=== PATIENT | female | born 1945 | race Caucasian/White ===

== ENCOUNTER 2022-09-13 16:47 | Inpatient (IN) | payer MEDICARE, OTHER ==
[~2022-09-13] VITALS: Ht 167.6 cm; Wt 67.1 kg
--- NOTE | 2022-09-13 17:05 | NUR ---
Pt is medically cleared by Dr Belcher, placed a call to Francia RUBIO RN for Psych eval. Awaiting call back.
--- NOTE | 2022-09-13 17:14 | NUR ---
patient sent to er for medical clearance c/o left shoulder pain denies sob cp, no nausea vomiting.
[2022-09-13] MEDS ORDERED: BUPR8TAB4 SL (17:26)
--- NOTE | 2022-09-13 17:26 | NUR ---
Spoke to Pt's daughter Maribel, and requested her to bring pt's med list/bottles.
--- NOTE | 2022-09-13 19:33 | NUR ---
[facility] crisis team for psych evaluation
[2022-09-13] MEDS ORDERED: METO50TA16 PO (20:13)
[2022-09-13] MEDS ORDERED: AMLO-212 PO (20:16)
[2022-09-13] MEDS ORDERED: APIX5TAB4 PO (20:18)
[2022-09-13] MEDS ORDERED: ROSU5TAB PO (20:20)
[2022-09-13] MEDS ORDERED: SERT20OR6 PO (20:23)
[2022-09-13] MEDS ORDERED: NALO12.52 PO (20:25)
--- NOTE | 2022-09-13 20:53 | NUR ---
Report given to Rabia AVILES. Patient will be admitted to MHU room 138-A
--- NOTE | 2022-09-13 21:00 | NUR ---
Patient taken to MHU via gurney accompanied by TRACI Peralta with personal belongings. Patient in stable condition, no signs of distress. MHU RN aware of patients arrival.
[2022-09-13] MEDS: METOPROLOL TARTRATE 50 MG TABLET PO SCH (21:37)
[2022-09-13 22:00] VITALS: BP 161/83
[2022-09-13] MEDS ORDERED: MAGNESIUM HYDROXIDE 30 ML LIQUID UDC PO PRN (22:00)
[2022-09-13] MEDS ORDERED: MAG HYDROX/AL HYDROX/SIMETH 30 ML LIQUID UDC PO PRN (22:00)
[2022-09-13] MEDS: ACETAMINOPHEN 325 MG TABLET PO PRN (22:32)
[2022-09-13] MEDS: ZOLPIDEM 5 MG TABLET PO PRN (22:33)
--- NOTE | 2022-09-13 23:49 | NUR ---
GPS ADMISSION NOTES: Admitted a female 76 y/o patient to [facility] er nurse via silvio. Patient resides at home w/ daughter where she was reported to have overdosed on clonopin and alcohol. Patient was placed on 5150 for DTS, and will be followed by Dr. Weaver and Dr. Gomez. Upon face to face evaluation, she appears of stated age, well nourished in appearance. Patient is crying and moaning when being interviewed, she states she is in alot of pain especially in her back. Patient stated that she has significant chronic back pain, that is so excruciating she cannot bear the pain and live with that pain anymore. Patient admitted of taking clonazepam to overdose as she is "tired". Patient denies hurting herself at this time and contract safety with the financial writer. She also states to be feeling depressed and hopeless d/t chronic pain. Active listening and re-assurance provided to patients feelings. Her judgement and insight limited. Patient oriented to the unit and verbalized understanding. She was assisted to her room, skin assessment done, skin is to be intact. All belonging inventoried, contraband collected and placed in safe keeping. Close observation in placed, all safety measures implemented at all times.
[2022-09-14 06:47] LABS: HEMATOCRIT 42.6 % (31.2-41.9); MEAN CORPUSCULAR HEMOGLOBIN 30.1 uug (24.7-32.8); MEAN CORPUSCULAR VOLUME 89.4 fL (75.5-95.3); PLATELET COUNT (AUTO) 247 K/uL (179-408)
[2022-09-14 07:14] LABS: THYROID STIMULATING HORMONE 1.041 mIU/mL (0.358-3.740)
--- NOTE | 2022-09-14 07:15 | NUR ---
GPS Nursing note: Patient lying in bed, sleep, easily respond to voice, patient stated she had pain on her left arm due to arthritis, will follow with pain medication prn. fall and safety precaution implemented. will continue to monitor.
[2022-09-14 07:31] VITALS: BP 118/49
[2022-09-14 08:00] LABS: ALANINE AMINOTRANSFERASE 23 U/L (14-59); ALKALINE PHOSPHATASE 182 U/L (50-136); ASPARTATE AMINOTRANSFERASE 15 U/L (15-37); BILIRUBIN,TOTAL 1.5 mg/dL (0.2-1.0); CARBON DIOXIDE 29 mmol/L (21-32); CHLORIDE 97 mmol/L (98-107); CHOLESTEROL 162 mg/dL (<200); CREATININE 0.5 mg/dL (0.6-1.3); GLUCOSE 93 mg/dL (74-106); HDL CHOLESTEROL 89 mg/dL (40-60); MAGNESIUM 1.6 mg/dL (1.8-2.4); PHOSPHOROUS 4.4 mg/dL (2.5-4.9); POTASSIUM 3.8 mmol/L (3.5-5.1); TOTAL PROTEIN, SERUM 7.8 g/dL (6.4-8.2); TRIGLYCERIDES 53 MG/DL (30-150); UREA NITROGEN, BLOOD 8 mg/dL (7-18)
[2022-09-14] MEDS: APIXABAN 5 MG TABLET PO SCH ×2 (08:16→21:01)
[2022-09-14] MEDS: AMLODIPINE 5 MG TABLET PO SCH (08:25)
[2022-09-14] MEDS: ACETAMINOPHEN 325 MG TABLET PO PRN ×2 (08:27→20:57)
[2022-09-14] MEDS: METOPROLOL TARTRATE 50 MG TABLET PO SCH ×2 (09:15→21:15)
[2022-09-14] MEDS ORDERED: MAGNESIUM OXIDE 400 MG TABLET PO ONE (10:00)
[2022-09-14] MEDS: CHLORDIAZEPOXIDE HCL 25 MG CAPSULE PO SCH ×3 (10:54→16:53)
[2022-09-14] MEDS: MULTIVITAMINS,THERAPEUTIC TABLET PO SCH (10:54)
[2022-09-14] MEDS: DULOXETINE 30 MG CAPSULE.DR PO SCH (10:54)
[2022-09-14] MEDS: THIAMINE HCL 100 MG TABLET PO SCH (10:54)
[2022-09-14 10:58] VITALS: BP 132/50
--- NOTE | 2022-09-14 11:06 | NUR ---
GPS Nursing notes: patient awake, ambulated to the bathroom using FWW, with one assist, patient gait is unsteady, informed patient she needs to call nurse for help when ambulating to the bathroom. will continue to monitor. fall and safety precautions implemented, emotional support provided. Dr Gomez aware of patient home meds, dr Weaver spoke with doctor Gomez regarding medications. Will continue to monitor.
--- NOTE | 2022-09-14 11:44 | NUR ---
JUAN CARLOS Initial Discharge Note: Pt currently resides at home under the care of her daughter, Maribel [phone] located at [address] [place] [address]. Per Maribel, pt will return back home under Maribel's care upon discharge. JUAN CARLOS will continue to work with pt, Maribel and to ensure a safe and proper discharge plan.
--- NOTE | 2022-09-14 11:45 | NUR ---
JUAN CARLOS Discharge Update: JUAN CARLOS spoke with pt's daughter, Marible [phone] who stated that pt will return back home under her care upon discharge. JUAN CARLOS will continue to work with pt, Maribel and to ensure a safe and proper discharge plan.
--- NOTE | 2022-09-14 11:48 | NUR ---
Firearms Report: Wiener Packer completed and submitted a [employer] firearms report for 5150 a danger to self certifications. A copy of report has been placed in patient chart.
[2022-09-14] MEDS: BUPRENORPHINE SL SCH ×2 (12:21→16:53)
[2022-09-14] MEDS: NALOXONE SL SCH ×2 (12:21→16:53)
--- NOTE | 2022-09-14 13:08 | NUR ---
GPS Nursing notes: Patient cooperative, awake, denies SI/HI/VH/AH, seen by doctor Gomez, all medications reconciled, and continue home medications as ordered by Dr Gomez, pharmacy aware. Patient stated she feels better. "I live with my daughter but I take all medications by myself". fall and safety precautions implemented, emotional support provided. Will continue to monitor.
[2022-09-14] MEDS: GABAPENTIN 100 MG CAPSULE PO SCH ×2 (13:22→16:53)
[2022-09-14] MEDS ORDERED: BUPR1FIL3 SL (13:38)
[2022-09-14] MEDS: MOVANTIK 12.5 MG PO SCH (13:56)
[2022-09-14 15:51] VITALS: BP 96/42
[2022-09-14 16:53] VITALS: BP 123/69
[2022-09-14 20:06] VITALS: BP 106/51
[2022-09-14] MEDS: ATORVASTATIN 10 MG TABLET PO SCH (20:57)
[2022-09-14] MEDS: ZOLPIDEM 5 MG TABLET PO PRN (20:58)
[2022-09-15 08:07] VITALS: BP 113/82
[2022-09-15] MEDS: DULOXETINE 30 MG CAPSULE.DR PO SCH (08:27)
[2022-09-15] MEDS: THIAMINE HCL 100 MG TABLET PO SCH (08:27)
[2022-09-15] MEDS: GABAPENTIN 100 MG CAPSULE PO SCH ×3 (08:27→16:31)
[2022-09-15] MEDS: MULTIVITAMINS,THERAPEUTIC TABLET PO SCH (08:27)
[2022-09-15] MEDS: APIXABAN 5 MG TABLET PO SCH ×2 (08:27→21:15)
[2022-09-15] MEDS: CHLORDIAZEPOXIDE HCL 25 MG CAPSULE PO SCH ×3 (08:27→16:31)
[2022-09-15] MEDS: AMLODIPINE 5 MG TABLET PO SCH (08:28)
[2022-09-15] MEDS: MOVANTIK 12.5 MG PO SCH (08:29)
[2022-09-15] MEDS: METOPROLOL TARTRATE 50 MG TABLET PO SCH ×2 (08:33→21:12)
[2022-09-15] MEDS: NALOXONE SL SCH ×3 (08:48→16:32)
[2022-09-15] MEDS: BUPRENORPHINE SL SCH ×3 (08:48→16:32)
[2022-09-15] MEDS: ENSURE ENLIVE (VAN) 240 ML LIQUID PO SCH ×2 (13:24→16:32)
--- NOTE | 2022-09-15 15:50 | NUR ---
Patient is isolative, withdrawn, quiet, depressed, preoccupied, anxious at times. Patient states "I have a lot of pain. I have arthritis, and need my medication because it hurts too much". Patient is given Naloxone 8 mg/ 2 mg sublingual TID for pain. Patient is A/O X 3 to person, place, situation. Patient is cooperative with nursing care and compliant with medications. Patient is encourage to verbalize concerns. Fall and safety precautions implemented.
[2022-09-15 16:22] VITALS: BP 129/72
[2022-09-15 20:00] VITALS: BP 118/76
[2022-09-15] MEDS: ATORVASTATIN 10 MG TABLET PO SCH (21:12)
[2022-09-15] MEDS: ZOLPIDEM 5 MG TABLET PO PRN (21:22)
[2022-09-16] MEDS: ACETAMINOPHEN 325 MG TABLET PO PRN ×2 (00:26→21:19)
[2022-09-16] MEDS: LORAZEPAM 0.5 MG TABLET PO PRN (03:45)
--- NOTE | 2022-09-16 06:50 | NUR ---
Pt has c/o chronic pain. PRRN medications given Pt states she still has the pain. pt requested prn ativan at 0345. Tylenol aas given for pain. Pt was anxious and requested prn given at 0345. pt agreed to take a shower
[2022-09-16 07:40] VITALS: BP 117/58
[2022-09-16] MEDS: DULOXETINE 30 MG CAPSULE.DR PO SCH (08:28)
[2022-09-16] MEDS: APIXABAN 5 MG TABLET PO SCH ×2 (08:28→20:59)
[2022-09-16] MEDS: CYANOCOBALAMIN 1,000 MCG TABLET PO SCH (08:28)
[2022-09-16] MEDS: CHLORDIAZEPOXIDE HCL 25 MG CAPSULE PO SCH ×3 (08:29→17:06)
[2022-09-16] MEDS: GABAPENTIN 100 MG CAPSULE PO SCH ×3 (08:29→17:06)
[2022-09-16] MEDS: MULTIVITAMINS,THERAPEUTIC TABLET PO SCH (08:29)
[2022-09-16] MEDS: AMLODIPINE 5 MG TABLET PO SCH (08:29)
[2022-09-16] MEDS: THIAMINE HCL 100 MG TABLET PO SCH (08:29)
[2022-09-16] MEDS: MOVANTIK 12.5 MG PO SCH (08:31)
[2022-09-16] MEDS: ENSURE ENLIVE (VAN) 240 ML LIQUID PO SCH ×2 (08:32→17:07)
[2022-09-16] MEDS: NALOXONE SL SCH ×3 (08:33→17:05)
[2022-09-16] MEDS: BUPRENORPHINE SL SCH ×3 (08:33→17:05)
[2022-09-16] MEDS: METOPROLOL TARTRATE 50 MG TABLET PO SCH ×2 (08:35→20:56)
--- NOTE | 2022-09-16 13:30 | NUR ---
Received patient awake alert ambulated to the bathroom using FWW with min. assist, patient gait is unsteady, fall and safety precautions implemented. patient has been c/o windows server engineer back pain with maloxone 8 mg/2 mg sublingual given TID ,assisted patient to restroom with one person assisted .patient is depressed isolative emotional support provided.will continue close monitoring.
[2022-09-16 16:13] VITALS: BP 125/63
[2022-09-16 20:04] VITALS: BP 132/61
[2022-09-16] MEDS: ATORVASTATIN 10 MG TABLET PO SCH (20:55)
[2022-09-17 07:38] VITALS: BP 101/56
[2022-09-17] MEDS: CHLORDIAZEPOXIDE HCL 25 MG CAPSULE PO SCH ×2 (08:42→16:52)
[2022-09-17] MEDS: DULOXETINE 30 MG CAPSULE.DR PO SCH (08:42)
[2022-09-17] MEDS: MULTIVITAMINS,THERAPEUTIC TABLET PO SCH (08:42)
[2022-09-17] MEDS: THIAMINE HCL 100 MG TABLET PO SCH (08:42)
[2022-09-17] MEDS: CYANOCOBALAMIN 1,000 MCG TABLET PO SCH (08:43)
[2022-09-17] MEDS: MOVANTIK 12.5 MG PO SCH (08:44)
[2022-09-17] MEDS: BUPRENORPHINE SL SCH ×3 (08:44→16:52)
[2022-09-17] MEDS: GABAPENTIN 100 MG CAPSULE PO SCH ×3 (08:44→16:52)
[2022-09-17] MEDS: AMLODIPINE 5 MG TABLET PO SCH (08:44)
[2022-09-17] MEDS: NALOXONE SL SCH ×3 (08:44→16:52)
[2022-09-17] MEDS: APIXABAN 5 MG TABLET PO SCH ×2 (08:45→20:28)
[2022-09-17] MEDS: METOPROLOL TARTRATE 50 MG TABLET PO SCH ×2 (08:46→20:55)
[2022-09-17] MEDS: ENSURE ENLIVE (VAN) 240 ML LIQUID PO SCH ×2 (08:48→16:53)
--- NOTE | 2022-09-17 10:07 | NUR ---
SW Discharge Update: Pt currently resides at home under the care of her daughter, Maribel [phone] located at [address] [place] [address]. Per Maribel, pt will return back home under Maribel's care upon discharge.
--- NOTE | 2022-09-17 15:51 | NUR ---
patient awake alert ambulated to the bathroom using FWW with min. assist, patient gait is unsteady, fall and safety precautions implemented. patient has been c/o service observer chief back pain with maloxone 8 mg/2 mg sublingual given TID ,assisted patient to restroom with one person assisted .patient is depressed isolative emotional support provided.will continue close monitoring.
[2022-09-17 16:13] VITALS: BP 124/53
[2022-09-17 19:40] VITALS: BP 127/62
[2022-09-17] MEDS: ATORVASTATIN 10 MG TABLET PO SCH (20:26)
[2022-09-17] MEDS: ACETAMINOPHEN 325 MG TABLET PO PRN (20:27)
[2022-09-17] MEDS: ZOLPIDEM 5 MG TABLET PO PRN (20:58)
--- NOTE | 2022-09-17 21:00 | NUR ---
Received patient in bed, sleep intermittently, patient calm and cooperative with medications, request pain medication and sleeping meds, given meds as ordered. cont to monitor.
--- NOTE | 2022-09-17 23:00 | NUR ---
Dr Gomez seen the patient, and stated that he will order a pain management MD for the patient, patient has left arm and generalize body pain.
[2022-09-18] MEDS: ACETAMINOPHEN 325 MG TABLET PO PRN ×2 (05:46→14:28)
--- NOTE | 2022-09-18 06:20 | NUR ---
Place a call to [facility], Alexis Maria CUTTER GRINDER OPERATOR telephone operator, left a message regarding patient complain of lots of pain on left arm, left elbow, left leg and back, awaiting for response.
--- NOTE | 2022-09-18 07:03 | NUR ---
Patient refused to be clean or moved, endorse to next shift regarding patient complain of pain, cont to monitor. Patient slept for 7 hours last night.
--- NOTE | 2022-09-18 07:15 | NUR ---
GPS Nursing notes: Patient lying in bed, asleep, easily arousal, no S/S of respiratory distress noted. Will continue to monitor.
[2022-09-18 07:47] VITALS: BP 99/48
[2022-09-18] MEDS: MOVANTIK 12.5 MG PO SCH (08:07)
[2022-09-18] MEDS: BUPRENORPHINE SL SCH ×3 (08:07→17:07)
[2022-09-18] MEDS: NALOXONE SL SCH ×3 (08:07→17:07)
[2022-09-18] MEDS: THIAMINE HCL 100 MG TABLET PO SCH (08:14)
[2022-09-18] MEDS: CHLORDIAZEPOXIDE HCL 25 MG CAPSULE PO SCH ×2 (08:15→17:04)
[2022-09-18] MEDS: MULTIVITAMINS,THERAPEUTIC TABLET PO SCH (08:15)
[2022-09-18] MEDS: CYANOCOBALAMIN 1,000 MCG TABLET PO SCH (08:15)
[2022-09-18] MEDS: DULOXETINE 30 MG CAPSULE.DR PO SCH ×2 (08:15→17:04)
[2022-09-18] MEDS: APIXABAN 5 MG TABLET PO SCH ×2 (08:16→20:39)
[2022-09-18] MEDS: GABAPENTIN 100 MG CAPSULE PO SCH ×3 (08:16→17:04)
[2022-09-18] MEDS: AMLODIPINE 5 MG TABLET PO SCH (08:20)
[2022-09-18] MEDS: ENSURE ENLIVE (VAN) 240 ML LIQUID PO SCH ×2 (08:43→17:07)
[2022-09-18] MEDS: METOPROLOL TARTRATE 50 MG TABLET PO SCH ×2 (09:13→20:38)
--- NOTE | 2022-09-18 10:50 | NUR ---
GPS Nursing notes: Patient was up in Quin-chair, attended AM group, worked with physical therapy, gait is slowly, unbalance, needs 2 assist. Patient denies SI/HI/VH/AH, Fall and safety precaution implemented, emotional support provided. Will continue to monitor.
--- NOTE | 2022-09-18 13:26 | NUR ---
GPS Nursing notes: Patient, awake lying in bed, encourage patient to reposition q2 and as need it to prevent skin breakdown, prompting required, left top of hand swelling noted, Medical chemical treatment operator evaluated site and stated is Rheumatoid Arthritis flare u up, patient to star Medrol [facility], pharmacy aware, and patient aware.
[2022-09-18] MEDS ORDERED: methylPREDNISolone 4 MG TABLET (DAY#1) PO ONE (13:30)
[2022-09-18] MEDS ORDERED: methylPREDNISolone 1 PACK TAB.DS.PK [4MG TAB] PO SCH (13:30)
[2022-09-18 16:14] VITALS: BP 112/50
[2022-09-18] MEDS ORDERED: methylPREDNISolone 4 MG TABLET (DAY#1, BEFORE DINNER) PO ONE (17:30)
--- NOTE | 2022-09-18 17:33 | NUR ---
GPS Nursing Notes: Patient sitting up in bed eating dinner, patient stated ,"I feel better". Will continue to monitor.
--- NOTE | 2022-09-18 19:00 | NUR ---
Received in wheelchair, assisted back to bed by AM RN no complain of pain at this time, tolerate activity at this time, kept clean and dry, cont to monitor.
[2022-09-18] MEDS: ATORVASTATIN 10 MG TABLET PO SCH (20:34)
[2022-09-18] MEDS: REMEDY ESSENTIAL ZINC PASTE 113 GM TOP SCH (20:36)
[2022-09-18] MEDS ORDERED: methylPREDNISolone 4 MG TABLET (DAY#1, HS) PO ONE (21:00)
[2022-09-18 21:06] VITALS: BP 126/62
[2022-09-19] MEDS: LORAZEPAM 0.5 MG TABLET PO PRN (02:24)
[2022-09-19] MEDS: ACETAMINOPHEN 325 MG TABLET PO PRN (02:24)
--- NOTE | 2022-09-19 02:24 | NUR ---
Patient was asleep woke up with pain, noted patient has anxiety when she in pain, Patient refused to be reposition at this time, cont to encourage to be turn and reposition.
--- NOTE | 2022-09-19 07:00 | NUR ---
GPS Nursing notes: Patient up, in W/C this morning , stated feels better. Will continue to monitor.
[2022-09-19 07:30] VITALS: BP 122/53
[2022-09-19] MEDS ORDERED: methylPREDNISolone 4 MG TABLET (DAY#2, ACB) PO ONE (07:30)
[2022-09-19] MEDS: ENSURE ENLIVE (VAN) 240 ML LIQUID PO SCH ×2 (08:00→17:03)
[2022-09-19] MEDS: MULTIVITAMINS,THERAPEUTIC TABLET PO SCH (08:59)
[2022-09-19] MEDS: CHLORDIAZEPOXIDE HCL 25 MG CAPSULE PO SCH ×2 (08:59→17:00)
[2022-09-19] MEDS: DULOXETINE 30 MG CAPSULE.DR PO SCH ×2 (08:59→17:00)
[2022-09-19] MEDS: METOPROLOL TARTRATE 50 MG TABLET PO SCH ×2 (08:59→20:24)
[2022-09-19] MEDS: AMLODIPINE 5 MG TABLET PO SCH (09:00)
[2022-09-19] MEDS: GABAPENTIN 100 MG CAPSULE PO SCH ×3 (09:00→17:00)
[2022-09-19] MEDS: APIXABAN 5 MG TABLET PO SCH ×2 (09:00→20:23)
[2022-09-19] MEDS: THIAMINE HCL 100 MG TABLET PO SCH (09:00)
[2022-09-19] MEDS: MOVANTIK 12.5 MG PO SCH (09:01)
[2022-09-19] MEDS: REMEDY ESSENTIAL ZINC PASTE 113 GM TOP SCH ×2 (09:02→20:19)
[2022-09-19] MEDS: CYANOCOBALAMIN 1,000 MCG TABLET PO SCH (09:31)
[2022-09-19] MEDS: BUPRENORPHINE SL SCH ×3 (09:31→17:00)
[2022-09-19] MEDS: NALOXONE SL SCH ×3 (09:31→17:00)
[2022-09-19] MEDS ORDERED: methylPREDNISolone 4 MG TABLET (DAY#2, PC LUNCH) PO ONE (12:30)
[2022-09-19 15:16] VITALS: BP 121/65
--- NOTE | 2022-09-19 16:10 | NUR ---
GPS Nursing notes: Patient attended groups, participated with Physical groups, participated with self care with bright affect, denies SI/HI/VH/AH , compliance with medication regiment. Fall and safety precautions implement, emotional support provided. Will continue to monitor.
[2022-09-19] MEDS ORDERED: methylPREDNISolone 4 MG TABLET (DAY#2, PC DINNER) PO ONE (17:30)
[2022-09-19 20:01] VITALS: BP 119/54
[2022-09-19] MEDS: ATORVASTATIN 10 MG TABLET PO SCH (20:22)
[2022-09-19] MEDS: ZOLPIDEM 5 MG TABLET PO PRN (20:47)
[2022-09-19] MEDS ORDERED: methylPREDNISolone 4 MG TABLET (DAY#2, HS) PO ONE (21:00)
--- NOTE | 2022-09-19 21:32 | NUR ---
GPS: Remains depressed and sad but contracts for safety. Denies wanting to harm self. Meds.as ordered. Pain seems to be under control for the most part per pt. Observed to be doing more for herself than usual. Fall precautions observed. Safe environment provided. Needs attended.
[2022-09-20] MEDS ORDERED: methylPREDNISolone 4 MG TABLET (DAY#3, ACB) PO ONE (07:30)
[2022-09-20 08:01] VITALS: BP 111/58
[2022-09-20] MEDS: CHLORDIAZEPOXIDE HCL 25 MG CAPSULE PO SCH (08:30)
[2022-09-20] MEDS: THIAMINE HCL 100 MG TABLET PO SCH (08:30)
[2022-09-20] MEDS: DULOXETINE 30 MG CAPSULE.DR PO SCH ×2 (08:30→17:16)
[2022-09-20] MEDS: GABAPENTIN 100 MG CAPSULE PO SCH ×3 (08:30→17:16)
[2022-09-20] MEDS: MULTIVITAMINS,THERAPEUTIC TABLET PO SCH (08:30)
[2022-09-20] MEDS: MOVANTIK 12.5 MG PO SCH (08:31)
[2022-09-20] MEDS: CYANOCOBALAMIN 1,000 MCG TABLET PO SCH (08:31)
[2022-09-20] MEDS: AMLODIPINE 5 MG TABLET PO SCH (08:33)
[2022-09-20] MEDS: APIXABAN 5 MG TABLET PO SCH ×2 (08:34→20:14)
[2022-09-20] MEDS: ENSURE ENLIVE (VAN) 240 ML LIQUID PO SCH ×2 (08:35→12:39)
[2022-09-20] MEDS: REMEDY ESSENTIAL ZINC PASTE 113 GM TOP SCH ×2 (08:36→20:15)
[2022-09-20] MEDS: METOPROLOL TARTRATE 50 MG TABLET PO SCH ×2 (08:38→20:21)
[2022-09-20] MEDS: NALOXONE SL SCH ×3 (09:08→17:16)
[2022-09-20] MEDS: BUPRENORPHINE SL SCH ×3 (09:08→17:16)
[2022-09-20] MEDS ORDERED: methylPREDNISolone 4 MG TABLET (DAY#3, PC LUNCH) PO ONE (12:30)
--- NOTE | 2022-09-20 13:15 | NUR ---
Patient had court hearing today, and management architect Rekha Mckeon gave 14 Day hold probable cause for GD.
[2022-09-20] MEDS: ACETAMINOPHEN 325 MG TABLET PO PRN (15:23)
[2022-09-20 15:30] VITALS: BP 120/64
[2022-09-20] MEDS ORDERED: methylPREDNISolone 4 MG TABLET (DAY#3, PC DINNER) PO ONE (17:30)
--- NOTE | 2022-09-20 17:37 | NUR ---
Received patient in her room. A/O X 3 to person, place. Patient is isolative, withdrawn, depressed, quiet, cooperative with nursing care, compliant with medications. Tylenol 650 mg at 15:23 for neck pain, effective. Reassurance given. Fall and safety precautions implemented.
[2022-09-20] MEDS: ATORVASTATIN 10 MG TABLET PO SCH (20:14)
--- NOTE | 2022-09-20 20:44 | NUR ---
GPS: Pt.remains anxious at times. Re-assured prn. Denies wanting to harm self. Meds.as ordered. Safe environment provided. Assisted with her adl's prn. Will continue to monitor.
[2022-09-20] MEDS ORDERED: methylPREDNISolone 4 MG TABLET (DAY#3, HS) PO ONE (21:00)
[2022-09-20] MEDS: HYDROXYZINE PAMOATE 25 MG CAPSULE PO PRN (21:02)
[2022-09-20 22:27] VITALS: BP 124/65
[2022-09-20] MEDS ORDERED: ZOLPIDEM 5 MG TABLET PO PRN (22:45)
[2022-09-21 07:12] VITALS: BP 135/71
[2022-09-21] MEDS ORDERED: methylPREDNISolone 4 MG TABLET (DAY#4, ACB) PO ONE (07:30)
[2022-09-21] MEDS: GABAPENTIN 100 MG CAPSULE PO SCH ×3 (08:38→17:04)
[2022-09-21] MEDS: THIAMINE HCL 100 MG TABLET PO SCH (08:38)
[2022-09-21] MEDS: DULOXETINE 30 MG CAPSULE.DR PO SCH ×2 (08:38→17:04)
[2022-09-21] MEDS: MULTIVITAMINS,THERAPEUTIC TABLET PO SCH (08:39)
[2022-09-21] MEDS: AMLODIPINE 5 MG TABLET PO SCH (08:39)
[2022-09-21] MEDS: CYANOCOBALAMIN 1,000 MCG TABLET PO SCH (08:40)
[2022-09-21] MEDS: MOVANTIK 12.5 MG PO SCH (08:42)
[2022-09-21] MEDS: ENSURE ENLIVE (VAN) 240 ML LIQUID PO SCH (08:42)
[2022-09-21] MEDS: REMEDY ESSENTIAL ZINC PASTE 113 GM TOP SCH ×2 (08:43→21:52)
[2022-09-21] MEDS: METOPROLOL TARTRATE 50 MG TABLET PO SCH ×2 (08:43→20:55)
[2022-09-21] MEDS: BUPRENORPHINE SL SCH ×3 (08:44→17:05)
[2022-09-21] MEDS: APIXABAN 5 MG TABLET PO SCH ×2 (08:44→21:32)
[2022-09-21] MEDS: NALOXONE SL SCH ×3 (08:44→17:05)
[2022-09-21] MEDS ORDERED: methylPREDNISolone 4 MG TABLET (DAY#4, PC LUNCH) PO ONE (12:30)
[2022-09-21 15:18] VITALS: BP 115/54
--- NOTE | 2022-09-21 16:08 | NUR ---
Patient is more sociable, interactive in group activities, cooperative with nursing care, compliant with medications, quiet and depressed at times. A/O X 3 to person, place. Patient is encourage to vent feelings. Fall and safety precautions implemented.
[2022-09-21 20:24] VITALS: BP 122/57
[2022-09-21] MEDS: MELATONIN 3 MG TABLET PO SCH (20:54)
[2022-09-21] MEDS: ATORVASTATIN 10 MG TABLET PO SCH (20:55)
[2022-09-21] MEDS ORDERED: methylPREDNISolone 4 MG TABLET (DAY#4, HS) PO ONE (21:00)
[2022-09-22] MEDS ORDERED: methylPREDNISolone 4 MG TABLET (DAY#5, ACB) PO ONE (07:30)
--- NOTE | 2022-09-22 07:30 | NUR ---
GPS Nursing Notes: Patient up in W/C, denies SI/HI/VH, Patient feels better, patient with bright affect. fall and safety precautions implemented, emotional support provided.
[2022-09-22 07:56] VITALS: BP 127/70
[2022-09-22] MEDS: NALOXONE SL SCH ×3 (08:44→17:12)
[2022-09-22] MEDS: MULTIVITAMINS,THERAPEUTIC TABLET PO SCH (08:44)
[2022-09-22] MEDS: BUPRENORPHINE SL SCH ×3 (08:44→17:12)
[2022-09-22] MEDS: DULOXETINE 30 MG CAPSULE.DR PO SCH ×2 (08:44→16:44)
[2022-09-22] MEDS: MOVANTIK 12.5 MG PO SCH (08:46)
[2022-09-22] MEDS: APIXABAN 5 MG TABLET PO SCH ×2 (08:46→20:55)
[2022-09-22] MEDS: CYANOCOBALAMIN 1,000 MCG TABLET PO SCH (08:47)
[2022-09-22] MEDS: GABAPENTIN 100 MG CAPSULE PO SCH ×3 (08:47→16:44)
[2022-09-22] MEDS: THIAMINE HCL 100 MG TABLET PO SCH (08:48)
[2022-09-22] MEDS: AMLODIPINE 5 MG TABLET PO SCH (08:48)
[2022-09-22] MEDS: REMEDY ESSENTIAL ZINC PASTE 113 GM TOP SCH ×2 (09:21→21:03)
[2022-09-22] MEDS: ENSURE ENLIVE (VAN) 240 ML LIQUID PO SCH (09:21)
[2022-09-22] MEDS: METOPROLOL TARTRATE 50 MG TABLET PO SCH ×2 (09:25→21:00)
--- NOTE | 2022-09-22 11:23 | NUR ---
GPS Nursing notes: Patient is up and about with bright affect, participating with selfcare, medication compliant, denies SI/HI/VH/AH, or pain "I fee so much better, I just dont know what is the plan for my discharge". Patient showered this morning, medication compliant, cooperative with staff, social with selective peers. Fall and safety precaution implemented, emotional support provided.
[2022-09-22 16:10] VITALS: BP 111/62
[2022-09-22 20:26] VITALS: BP 107/67
[2022-09-22] MEDS: ATORVASTATIN 10 MG TABLET PO SCH (20:59)
[2022-09-22] MEDS: MELATONIN 3 MG TABLET PO SCH (20:59)
[2022-09-22] MEDS ORDERED: methylPREDNISolone 4 MG TABLET (DAY#5, HS) PO ONE (21:00)
[2022-09-23] MEDS ORDERED: methylPREDNISolone 4 MG TABLET (DAY#6, ACB) PO ONE (07:30)
[2022-09-23 08:04] VITALS: BP 116/60
[2022-09-23] MEDS: THIAMINE HCL 100 MG TABLET PO SCH (08:43)
[2022-09-23] MEDS: GABAPENTIN 100 MG CAPSULE PO SCH ×3 (08:43→17:32)
[2022-09-23] MEDS: CYANOCOBALAMIN 1,000 MCG TABLET PO SCH (08:43)
[2022-09-23] MEDS: DULOXETINE 30 MG CAPSULE.DR PO SCH ×2 (08:43→17:32)
[2022-09-23] MEDS: METOPROLOL TARTRATE 50 MG TABLET PO SCH ×2 (08:44→21:15)
[2022-09-23] MEDS: BUPRENORPHINE SL SCH ×3 (08:45→17:32)
[2022-09-23] MEDS: MULTIVITAMINS,THERAPEUTIC TABLET PO SCH (08:45)
[2022-09-23] MEDS: AMLODIPINE 5 MG TABLET PO SCH (08:45)
[2022-09-23] MEDS: NALOXONE SL SCH ×3 (08:45→17:32)
[2022-09-23] MEDS: APIXABAN 5 MG TABLET PO SCH ×2 (08:46→21:22)
[2022-09-23] MEDS: MOVANTIK 12.5 MG PO SCH (08:56)
[2022-09-23] MEDS: REMEDY ESSENTIAL ZINC PASTE 113 GM TOP SCH ×2 (08:56→21:31)
[2022-09-23] MEDS: ENSURE ENLIVE (VAN) 240 ML LIQUID PO SCH (08:57)
--- NOTE | 2022-09-23 16:43 | NUR ---
Received pt in dinning room watching television. Pt is more sociable, interacts with staff and peers. Pt is cooperative with nursing care, compliant with medications, quiet and depressed at times. A/O X 3 able to voice her needs. Patient is encourage to vent feelings. Reassurance and emotional support provided. Fall and safety precautions implemented.Continue to monitor for safety , continue with treatment plan. Addendum: 09/23/22 at 1920 by JUNAID VILLAGRAN LVN Denies SI and verbally contracted for safety with this com writer.
[2022-09-23 17:18] VITALS: BP 114/51
[2022-09-23 19:58] VITALS: BP 121/46
[2022-09-23] MEDS: MELATONIN 3 MG TABLET PO SCH (20:32)
[2022-09-23] MEDS: ATORVASTATIN 10 MG TABLET PO SCH (20:32)
--- NOTE | 2022-09-23 21:32 | NUR ---
Held Metoprolol 50mg @ 2100 hours d/t patient's DBP and heartrate being slightly lower than normal. DBP = 46, Pulse = 49 bpm. Will continue to monitor.
[2022-09-24 07:44] VITALS: BP 110/52
[2022-09-24] MEDS: THIAMINE HCL 100 MG TABLET PO SCH (08:32)
[2022-09-24] MEDS: DULOXETINE 30 MG CAPSULE.DR PO SCH ×2 (08:32→16:28)
[2022-09-24] MEDS: AMLODIPINE 5 MG TABLET PO SCH (08:33)
[2022-09-24] MEDS: MULTIVITAMINS,THERAPEUTIC TABLET PO SCH (08:33)
[2022-09-24] MEDS: CYANOCOBALAMIN 1,000 MCG TABLET PO SCH (08:33)
[2022-09-24] MEDS: ENSURE ENLIVE (VAN) 240 ML LIQUID PO SCH (08:34)
[2022-09-24] MEDS: APIXABAN 5 MG TABLET PO SCH ×2 (08:34→20:28)
[2022-09-24] MEDS: NALOXONE SL SCH ×3 (08:35→16:28)
[2022-09-24] MEDS: BUPRENORPHINE SL SCH ×3 (08:35→16:28)
[2022-09-24] MEDS: MOVANTIK 12.5 MG PO SCH (08:35)
[2022-09-24] MEDS: REMEDY ESSENTIAL ZINC PASTE 113 GM TOP SCH ×2 (08:35→21:35)
[2022-09-24] MEDS: METOPROLOL TARTRATE 50 MG TABLET PO SCH ×2 (08:37→20:27)
[2022-09-24] MEDS: GABAPENTIN 100 MG CAPSULE PO SCH (08:44)
--- NOTE | 2022-09-24 09:59 | NUR ---
JUAN CARLOS Discharge Update: JUAN CARLOS contacted pt's daughter, Maribel [phone] and left a voicemail for a call back to discuss pt's discharge plan.
--- NOTE | 2022-09-24 10:14 | NUR ---
JUAN CARLOS Discharge Update: JUAN CARLOS spoke with pt's daughter, Maribel [phone] who stated pt will return home under her care at home located at [address] [place] [address].
[2022-09-24] MEDS: GABAPENTIN 300 MG CAPSULE PO SCH ×2 (12:09→16:28)
--- NOTE | 2022-09-24 13:23 | NUR ---
GPS: Nursing Notes: Destructive Behavior To Self: Patient is awake and responding to her name, cooperative with nursing care, compliant with her medications, stated "I am feeling better...", denies SI, following staff directions, unable to formulate a viable plan for self care, needs minimal assistance with ADL's, A/Ox3, moving around on her w/c, able to self transfer, participating in therapeutic groups with minimal prompting, denies SI, verbally adelso for safety, continue to monitor for safety, continue with treatment plan.
[2022-09-24 16:11] VITALS: BP 117/63
[2022-09-24 19:57] VITALS: BP 116/64
[2022-09-24] MEDS: MELATONIN 3 MG TABLET PO SCH (20:27)
[2022-09-24] MEDS: ATORVASTATIN 10 MG TABLET PO SCH (20:27)
[2022-09-24] MEDS ORDERED: AMITRIPTYLINE HCL 25 MG TABLET ONE (21:42)
[2022-09-24] MEDS: AMITRIPTYLINE HCL 25 MG TABLET PO SCH (22:03)
[2022-09-24] MEDS: HYDROXYZINE PAMOATE 25 MG CAPSULE PO PRN (23:05)
--- NOTE | 2022-09-24 23:05 | NUR ---
Pt requested medication for help her relax so that she could fall asleep. Gave Vistaril 25mg po prn d/t insomnia medication had been DC'd. Safety implemented. Continuing with monitoring.
[2022-09-25] MEDS: DULOXETINE 30 MG CAPSULE.DR PO SCH ×2 (08:19→16:27)
[2022-09-25] MEDS: GABAPENTIN 300 MG CAPSULE PO SCH ×3 (08:20→16:27)
[2022-09-25] MEDS: CYANOCOBALAMIN 1,000 MCG TABLET PO SCH (08:20)
[2022-09-25] MEDS: THIAMINE HCL 100 MG TABLET PO SCH (08:20)
[2022-09-25] MEDS: MULTIVITAMINS,THERAPEUTIC TABLET PO SCH (08:20)
[2022-09-25] MEDS: ENSURE ENLIVE (VAN) 240 ML LIQUID PO SCH (08:20)
[2022-09-25] MEDS: MOVANTIK 12.5 MG PO SCH (08:21)
[2022-09-25] MEDS: AMLODIPINE 5 MG TABLET PO SCH (08:21)
[2022-09-25] MEDS: APIXABAN 5 MG TABLET PO SCH ×2 (08:22→21:17)
[2022-09-25 08:29] VITALS: BP 98/49
[2022-09-25] MEDS: REMEDY ESSENTIAL ZINC PASTE 113 GM TOP SCH ×2 (08:34→21:10)
[2022-09-25] MEDS: METOPROLOL TARTRATE 50 MG TABLET PO SCH ×2 (08:34→21:15)
[2022-09-25] MEDS: NALOXONE SL SCH ×3 (08:34→16:42)
[2022-09-25] MEDS: BUPRENORPHINE SL SCH ×3 (08:34→16:42)
--- NOTE | 2022-09-25 14:26 | NUR ---
JUAN CARLOS Discharge Update: JUAN CARLOS contacted pt's daughter, Maribel [phone] and was unable to leave a voicemail due to full mailbox. JUAN CARLOS will continue calling to discuss pt's discharge order to return home with Maribel under her care on 09/27/22 [address] [place] [address].
--- NOTE | 2022-09-25 15:53 | NUR ---
GPS: Nursing Notes: Destructive behavior To Self: Patient is awake and responding to her name, ambulatory with fww, but using w/c to move around the unit, gets easily anxious when redirected, compliant with her medications, participating in therapeutic groups, interactive with peers, stated "I am feeling better..", following staff directions, continue to monitor for safety, continue with treatment plan.
[2022-09-25 16:13] VITALS: BP 104/39
--- NOTE | 2022-09-25 16:18 | NUR ---
JUAN CARLOS Discharge Update: JUAN CARLOS contacted pt's daughter, Maribel [phone] and was unable to leave a voicemail due to full mailbox. JUAN CARLOS will continue calling to discuss pt's discharge order to return home with Maribel under her care on 09/27/[address] [place] [address].
--- NOTE | 2022-09-25 16:28 | NUR ---
JUAN CARLOS Discharge Update: JUAN CARLOS contacted pt's daughter, Marible [phone] and Maribel confirmed to speak tomorrow at 10am regarding pt's discharge details for [facility], 09/27/22 to return home under the care of Maribel. JUAN CARLOS will follow-up and update psychiatrist, Dr. Weaver.
[2022-09-25 21:00] VITALS: BP 109/57
[2022-09-25] MEDS: MELATONIN 3 MG TABLET PO SCH (21:08)
[2022-09-25] MEDS: ATORVASTATIN 10 MG TABLET PO SCH (21:09)
[2022-09-25] MEDS: AMITRIPTYLINE HCL 25 MG TABLET PO SCH (21:09)
[2022-09-25] MEDS: HYDROXYZINE PAMOATE 25 MG CAPSULE PO PRN (23:31)
[2022-09-25] MEDS: ACETAMINOPHEN 325 MG TABLET PO PRN (23:31)
--- NOTE | 2022-09-25 23:31 | NUR ---
Patient requested medications to help relieve pain in her lower back, (L) elbow and (L) leg. She also requested medication to help her relax. Gave Tylenol 650mg po prn, and Vistaril 25mg po prn for mild pain relief and insomnia mgt. Safety measures in place. Will continue to monitor.
[2022-09-26] MEDS: ACETAMINOPHEN 325 MG TABLET PO PRN ×2 (05:15→22:13)
--- NOTE | 2022-09-26 05:27 | NUR ---
Pt requested pain medication to help with generalized pain. Gave Tylenol 650mg, po, prn for mild pain mgt. Will continue to monitor.
[2022-09-26 08:08] VITALS: BP 115/46
[2022-09-26] MEDS: CYANOCOBALAMIN 1,000 MCG TABLET PO SCH (08:11)
[2022-09-26] MEDS: DULOXETINE 30 MG CAPSULE.DR PO SCH ×2 (08:11→17:27)
[2022-09-26] MEDS: GABAPENTIN 300 MG CAPSULE PO SCH ×3 (08:11→17:27)
[2022-09-26] MEDS: MULTIVITAMINS,THERAPEUTIC TABLET PO SCH (08:11)
[2022-09-26] MEDS: THIAMINE HCL 100 MG TABLET PO SCH (08:13)
[2022-09-26] MEDS: MOVANTIK 12.5 MG PO SCH (08:14)
[2022-09-26] MEDS: ENSURE ENLIVE (VAN) 240 ML LIQUID PO SCH (08:15)
[2022-09-26] MEDS: BUPRENORPHINE SL SCH ×3 (08:15→17:27)
[2022-09-26] MEDS: NALOXONE SL SCH ×3 (08:15→17:27)
[2022-09-26] MEDS: APIXABAN 5 MG TABLET PO SCH ×2 (08:15→22:05)
[2022-09-26] MEDS: AMLODIPINE 5 MG TABLET PO SCH (08:16)
[2022-09-26] MEDS: METOPROLOL TARTRATE 50 MG TABLET PO SCH ×2 (08:17→22:03)
[2022-09-26] MEDS: REMEDY ESSENTIAL ZINC PASTE 113 GM TOP SCH ×2 (08:17→22:06)
--- NOTE | 2022-09-26 09:00 | NUR ---
Received patient awake in her room. A/O X 1 to person. Patient was confused, disoriented, disorganized, withdrawn, refused medications. Patient vital signs this morning were BP 151/81, T 98.2, P95, R18, O2 98%. Patient bladder was scanned and showed 546 ml, straight cath was arranged, but not able to remove urine, because patient became unresponsive. Patient blood glucose was 115. Rapid response was called, code blue requested, patient is currently in ER. Addendum: 09/26/22 at 0955 by GREGORIA SHAFFER RN Please disregard the note above.
[2022-09-26] MEDS: LIDOCAINE 5% OINT 35.44 GM TUBE TOP SCH (15:06)
--- NOTE | 2022-09-26 15:10 | NUR ---
Lidocaine 5% ointment was applied at 15:06 for left knee pain, will be monitored for effectiveness.
--- NOTE | 2022-09-26 15:18 | NUR ---
Received patient sleeping in her room. Patient is A/O X 3 to person, place. Patient is isolative, depressed, not engage in group activities or interactions with peers, preoccupied about her arthritis and pain. Digital Traffic Coordinator prescribed ointment for left knee. Patient is encourage to verbalize concerns. Fall and safety precautions implemented. +
[2022-09-26 16:30] VITALS: BP 115/58
[2022-09-26 21:14] VITALS: BP 117/49
[2022-09-26] MEDS: ATORVASTATIN 10 MG TABLET PO SCH (21:59)
[2022-09-26] MEDS: MELATONIN 3 MG TABLET PO SCH (22:04)
[2022-09-26] MEDS: AMITRIPTYLINE HCL 25 MG TABLET PO SCH (22:12)
--- NOTE | 2022-09-27 05:25 | NUR ---
Patient requested Tylenol again for mild to moderate pain mgt in her (L) knee and leg. Safety implemented. Continued with monitoring.
[2022-09-27] MEDS: ACETAMINOPHEN 325 MG TABLET PO PRN (05:28)
[2022-09-27 07:30] VITALS: BP 112/65
[2022-09-27] MEDS: MULTIVITAMINS,THERAPEUTIC TABLET PO SCH (08:33)
[2022-09-27] MEDS: CYANOCOBALAMIN 1,000 MCG TABLET PO SCH (08:33)
[2022-09-27] MEDS: DULOXETINE 30 MG CAPSULE.DR PO SCH ×2 (08:33→16:43)
[2022-09-27] MEDS: GABAPENTIN 300 MG CAPSULE PO SCH ×3 (08:34→16:43)
[2022-09-27] MEDS: THIAMINE HCL 100 MG TABLET PO SCH (08:34)
[2022-09-27] MEDS: MOVANTIK 12.5 MG PO SCH (08:34)
[2022-09-27] MEDS: BUPRENORPHINE SL SCH ×3 (08:35→16:43)
[2022-09-27] MEDS: NALOXONE SL SCH ×3 (08:35→16:43)
[2022-09-27] MEDS: AMLODIPINE 5 MG TABLET PO SCH (08:36)
[2022-09-27] MEDS: ENSURE ENLIVE (VAN) 240 ML LIQUID PO SCH (08:36)
[2022-09-27] MEDS: REMEDY ESSENTIAL ZINC PASTE 113 GM TOP SCH (08:37)
[2022-09-27] MEDS: LIDOCAINE 5% OINT 35.44 GM TUBE TOP SCH (08:37)
[2022-09-27] MEDS: APIXABAN 5 MG TABLET PO SCH (08:39)
[2022-09-27] MEDS: METOPROLOL TARTRATE 50 MG TABLET PO SCH (08:40)
--- NOTE | 2022-09-27 11:17 | NUR ---
JUAN CARLOS Discharge Note: Pt will be discharged home located at [address] [place] [phone] via pts daughter, Angelina transportation ([phone]) at 3:30PM. JUAN CARLOS spoke with Maribel who states she is ready to accept the patient today. Pt is aware and agreeable with discharge plan. Pt is alert and oriented x4, is unable to plan for self-care at this time. However, pt is willing to accept care at home by her daughter, Maribel. Pt denies any suicidal or homicidal ideation. Pt will follow-up at the facility at [facility] located at [address] [place], [place] [id number] ([phone]) via teletherapy consultation with a Psychiatrist assigned on the consultation day and Pharmacy Clinical Coordinator, Dr. Jeffery [phone]. JUAN CARLOS also referred pt to [facility] [address] [place] [address], ; [facility] [address] [place] [address], ; [facility] [address] [place] [address], ; a list of medical clinics: [facility] [address] [facility] [address], [place]. [place], ; [facility] [address] [facility], [address], [place] [address]; [facility] [address] [place] [address], . Pt is agreeable with the resources. Pt presents with calm mood and congruent affect. PHARMACY: [facility] [address], [place] [address] ([phone]).
--- NOTE | 2022-09-27 15:08 | NUR ---
Patient is cooperative, compliant with medications, calm, sociable, pleasant, disorganized, depressed at times. Pt.is A/O X 3 to person, place, situation. Patient showered today. Patient is encourage to vent feelings and emotions. Fall and safety precautions implemented.
[2022-09-27 15:23] VITALS: BP 137/61
[2022-09-27 16:50] VITALS: BP 138/66
--- NOTE | 2022-09-27 17:19 | NUR ---
Received orders to discharge this patient to home located at [address] [place] [phone] via pts daughterAngelina transportation ([phone]) at 3:30PM. Patient is agreeable with discharge plans, and signed all discharge documentation. All medications, valuables, and belongings were returned to patient. Patient denies SI/HI AH/VH, SOB, pain or any discomfort. Patient left unit at 17:15. Emotional support provided. Fall and safety precautions implemented.
== END 2022-09-27 17:15 | disposition home or self-care (01) | DRG 885 ==
LOC: ER 16:47 → GPS 20:59
PROVIDERS: ADMIT Psychiatry & Neurology Psychiatry; ATTEND Internal Medicine
DX: F33.2 Major depressive disorder, recurrent severe without psychotic features (principal); F11.20 Opioid dependence, uncomplicated; D68.59 Other primary thrombophilia; R17 Unspecified jaundice; R45.851 Suicidal ideations; Z91.51 Personal history of suicidal behavior; T42.4X2D Poisoning by benzodiazepines, intentional self-harm, subsequent encounter; T51.0X2D Toxic effect of ethanol, intentional self-harm, subsequent encounter; F10.20 Alcohol dependence, uncomplicated; F41.9 Anxiety disorder, unspecified; G89.4 Chronic pain syndrome; Z79.01 Long term (current) use of anticoagulants; Z79.899 Other long term (current) drug therapy; M41.9 Scoliosis, unspecified; I48.0 Paroxysmal atrial fibrillation; Z90.710 Acquired absence of both cervix and uterus; M81.0 Age-related osteoporosis without current pathological fracture; I10 Essential (primary) hypertension; R73.03 Prediabetes; E83.42 Hypomagnesemia; E78.5 Hyperlipidemia, unspecified; Z74.09 Other reduced mobility; E53.8 Deficiency of other specified B group vitamins; E66.9 Obesity, unspecified; Z68.25 Body mass index [BMI] 25.0-25.9, adult; M06.9 Rheumatoid arthritis, unspecified
CPT/HCPCS: 36415; 71045; 83735; 84100; 84443; 85025; 93005; 97161; A4663; J7509